=== PATIENT | male | born 1955 | race Hispanic/Latino ===

== ENCOUNTER 2019-10-07 14:19 | Inpatient (IN) | payer MEDICARE ==
[~2019-10-07] VITALS: Ht 162.6 cm; Wt 98.7 kg
[2019-10-07] VITALS (11 sets, daily range): BP systolic 98–126; BP diastolic 61–72
[2019-10-07] MEDS ORDERED: SODIUM CHLORIDE 0.9% 1000ML 1,000 ML IV ONE ×2 (14:50→15:11)
[2019-10-07] MEDS ORDERED: SODIUM CHLORIDE 0.9% 100 ML IV ONE (14:51)
[2019-10-07] MEDS ORDERED: CEFTRIAXONE SODIUM 1 GM ONE (14:51)
[2019-10-07] MEDS ORDERED: LEVOFLOXACIN 500 MG/D5W 100 ML 100 ML ONE (14:52)
[2019-10-07 14:56] LABS: BASOPHILS % (AUTO) 0.5 % (0.0-5.0); EOSINOPHILS % (AUTO) 0.3 % (0.0-8.0); HEMATOCRIT 32.6 % (42-54); LYMPHOCYTES % (AUTO) 5.3 % (21.0-51.0); MEAN CORPUSCULAR HEMOGLOBIN 30.8 pg (27.0-33.0); MEAN CORPUSCULAR VOLUME 90.4 fL (79-99); NEUTROPHILS % (AUTO) 87.9 % (40.0-77.0); PLATELET COUNT (AUTO) 172 K/uL (130-400); RED CELL DISTRIBUTION WIDTH 14.6 % (11.0-15.5); WHITE BLOOD COUNT (AUTO) 10.3 K/uL (4.8-10.8)
[2019-10-07] MEDS ORDERED: ACETAMINOPHEN 325 MG TAB ONE (15:01)
[2019-10-07 15:09] LABS: INR 1.08 (0.85-1.15); PROTHROMBIN TIME 11.3 SEC (9.6-11.6)
[2019-10-07 15:18] LABS: CREATININE 2.8 mg/dL (0.5-1.5); POTASSIUM 5.1 mmol/L (3.5-5.1)
[2019-10-07 15:23] LABS: ALBUMIN 2.5 g/dL (3.5-5.0); BILIRUBIN,TOTAL 0.9 mg/dL (0.2-1.0); TOTAL PROTEIN, SERUM 8.4 g/dL (6.0-8.3)
[2019-10-07 15:50] LABS: APPEARANCE,URINE Cloudy (CLEAR); BILIRUBIN,URINE Negative (NEGATIVE); COLOR,URINE Dark Yellow (YELLOW); GLUCOSE, URINE (UA) Negative (NEGATIVE); KETONES,URINE Negative (NEGATIVE); LEUKOCYTE ESTERASE ,URINE Moderate (NEGATIVE); NITRATE,URINE Negative (NEGATIVE); OCCULT BLOOD,URINE Trace (NEGATIVE); PROTEIN,URINE Trace mg/dL (NEGATIVE)
[2019-10-07 16:06] LABS: AMORPHOUS SEDIMENT,UR Many /LPF (None Seen); BACTERIA,URINE Moderate /HPF (None Seen); RBC,URINE 0-1 /HPF (0-1); SQUAMOUS EPITHELIAL CELL,UR 0-2 /HPF (0-2)
[2019-10-07 17:02] LABS: PROTEIN,URINE RANDOM 48.6 mg/dL (0-11.9)
[2019-10-07] MEDS ORDERED: LACTATED RINGERS 1000ML 1,000 ML IV ONE (17:29)
[2019-10-07] MEDS: LACTATED RINGERS 1000ML 1,000 ML IV SCH ×2 (18:14→21:49)
[2019-10-07] MEDS: MEROPENEM 1 GM VIAL IV SCH (18:16)
[2019-10-07] MEDS: HYDROCODONE/ACETAMINOPHEN 10/325 MG TAB PO PRN (18:30)
[2019-10-07] MEDS ORDERED: SITA1TAB6 PO (19:21)
[2019-10-07] MEDS ORDERED: HYDR25TA PO (19:21)
[2019-10-07] MEDS ORDERED: ATOR10 PO (19:21)
[2019-10-07] MEDS ORDERED: DOXA1TAB2 PO (19:21)
[2019-10-07] MEDS ORDERED: LOSA100T58 PO (19:21)
[2019-10-07] MEDS ORDERED: GLIP10TA PO (19:21)
[2019-10-07] MEDS ORDERED: AMLO2.5T2 PO (19:21)
[2019-10-07] MEDS ORDERED: ASPI-1026 PO (19:21)
[2019-10-07 19:39] LABS: BASOPHILS % (AUTO) 0.3 % (0.0-5.0); EOSINOPHILS % (AUTO) 0.3 % (0.0-8.0); HEMATOCRIT 28.6 % (42-54); LYMPHOCYTES % (AUTO) 7.6 % (21.0-51.0); MEAN CORPUSCULAR HEMOGLOBIN 30.6 pg (27.0-33.0); MEAN CORPUSCULAR HGB CONC 33.7 g/dL (32.0-36.0); MEAN CORPUSCULAR VOLUME 90.7 fL (79-99); MONOCYTES % (AUTO) 9.5 % (3.0-13.0); NEUTROPHILS % (AUTO) 82.3 % (40.0-77.0); PLATELET COUNT (AUTO) 151 K/uL (130-400); RED BLOOD CELL COUNT(AUTO) 3.15 MIL/uL (4.50-6.20); RED CELL DISTRIBUTION WIDTH 14.6 % (11.0-15.5); WHITE BLOOD COUNT (AUTO) 8.5 K/uL (4.8-10.8)
[2019-10-07 19:51] LABS: ALBUMIN 2.1 g/dL (3.5-5.0); BILIRUBIN,TOTAL 0.6 mg/dL (0.2-1.0); CREATININE 2.6 mg/dL (0.5-1.5); POTASSIUM 4.3 mmol/L (3.5-5.1); TOTAL PROTEIN, SERUM 7.2 g/dL (6.0-8.3)
--- NOTE | 2019-10-07 21:40 | NUR ---
PM LAB RESULTS REPORTED TO Trista WASHINGTON NP NEW ORDERS RECEIVED.
[2019-10-07] MEDS ORDERED: LACTATED RINGERS 1000ML IV ONE (22:00)
[2019-10-08] VITALS (34 sets, daily range): BP systolic 100–182; BP diastolic 54–97
[2019-10-08 04:51] LABS: HEMOGLOBIN A1C 8.5 % (4.0-6.0)
[2019-10-08] MEDS: MEROPENEM 1 GM VIAL IV SCH ×2 (05:29→17:25)
[2019-10-08] MEDS: LACTATED RINGERS 1000ML 1,000 ML IV SCH ×3 (05:29→20:11)
[2019-10-08] MEDS: FAMOTIDINE 20MG TAB 20 MG TAB PO SCH (08:11)
[2019-10-08] MEDS: ENOXAPARIN SODIUM 30 MG/0.3 ML SQ SCH (08:12)
[2019-10-08] MEDS: HYDROCODONE/ACETAMINOPHEN 10/325 MG TAB PO PRN ×2 (08:17→17:34)
[2019-10-08] MEDS: TAMSULOSIN HCL 0.4 MG CAP.ER.24H PO SCH (09:03)
--- NOTE | 2019-10-08 13:32 | NUR ---
DC PLAN PER PATIENT AND , DEPENDENT ON ALL ADLS, LIVES WITH SPOUSE, NO PROVIDER OR COMMUNITY SERVICES, HAS CANE, WC, WALKER AND FEELS SAFE TO RETURN HOME. PATIENT WANT TO INQUIRE ABOUT HAVING WC ACCESSIBLE BATHROOM, REFERRED TO THE DEPARTMENT OF AGING AND DISABILITY FOR MORE INFORMATION. PORTER THAKUR. Addendum: 10/08/19 at 1336 by GARCÍA HERNANDEZ RN CM Amended: Links added.
[2019-10-08] MEDS: INSULIN HUMULIN R 100 UNIT/ML 3ML SQ SCH ×3 (13:53→21:00)
[2019-10-08] MEDS ORDERED: METOPROLOL TARTRATE 1 MG/ML 5ML VIAL IV PRN (21:45)
--- NOTE | 2019-10-08 21:45 | NUR ---
BERNADINE CHEW NP NOTIFIED OF PATIENT WITH HR ST 136, BP 182/95. NEW ORDER RECEIVED.
[2019-10-08] MEDS ORDERED: ACETAMINOPHEN 325 MG TAB PO PRN (22:30)
[2019-10-08] MEDS ORDERED: ACETAMINOPHEN 325 MG TAB ONE (23:00)
--- NOTE | 2019-10-08 23:15 | NUR ---
Trista WASHINGTONRN NOTIFIED OF PATIENT WITH TEMP 102.3, CONFUSED PHRASE, ORIENTED TO NAME AND DATE BUT THINKS HE IS IN A DAY CARE. TYLENOL PO GIVEN FOR TEMP SEE EMAR
[2019-10-09] VITALS (13 sets, daily range): BP systolic 125–156; BP diastolic 58–98
[2019-10-09 03:47] LABS: BASOPHILS % (AUTO) 0.3 % (0.0-5.0); EOSINOPHILS % (AUTO) 0.9 % (0.0-8.0); HEMATOCRIT 30.7 % (42-54); LYMPHOCYTES % (AUTO) 10.1 % (21.0-51.0); MEAN CORPUSCULAR HEMOGLOBIN 30.4 pg (27.0-33.0); MEAN CORPUSCULAR VOLUME 89.3 fL (79-99); MONOCYTES % (AUTO) 7.5 % (3.0-13.0); NEUTROPHILS % (AUTO) 81.2 % (40.0-77.0); PLATELET COUNT (AUTO) 177 K/uL (130-400); RED BLOOD CELL COUNT(AUTO) 3.44 MIL/uL (4.50-6.20); RED CELL DISTRIBUTION WIDTH 14.6 % (11.0-15.5); WHITE BLOOD COUNT (AUTO) 6.5 K/uL (4.8-10.8)
[2019-10-09 04:01] LABS: CREATININE 1.5 mg/dL (0.5-1.5); MAGNESIUM 1.6 mg/dL (1.80-2.40); PHOSPHORUS 2.8 mg/dL (2.5-4.9); POTASSIUM 4.8 mmol/L (3.5-5.1)
[2019-10-09] MEDS: MEROPENEM 1 GM VIAL IV SCH ×3 (04:54→20:02)
[2019-10-09] MEDS: INSULIN HUMULIN R 100 UNIT/ML 3ML SQ SCH ×4 (05:33→20:11)
[2019-10-09] MEDS: LACTATED RINGERS 1000ML 1,000 ML IV SCH (06:39)
--- NOTE | 2019-10-09 07:50 | NUR ---
TRANSFER PT RECEIVED FROM ICU RM 210 VIA BED. TOLERATED TRANSFER WELL. FAMILY @ BEDSIDE. A/O X 3. SOB ON EXERTION. NO DISTRESS NOTED. 02 N @ 2L. DENIES CHEST PAIN OR DISCOMFORT. DENIES PALPITATIONS. TELE: -STAYULIYA. HX OF CHRONIC BACK PAIN. DENIES N/V AND/OR DIARRHEA. LAST BM 10/05/19. PT STATES HAVING HX OF CONSTIPATION. BEDREST. PENDING PHYS THERAPY TO EVAL TODAY. ORIENTED TO RM. INSTRUCTED TO CALL FOR ASSISTANCE. CALL NASIM W/IN REACH.
[2019-10-09] MEDS: TAMSULOSIN HCL 0.4 MG CAP.ER.24H PO SCH (09:19)
[2019-10-09] MEDS: METOPROLOL TARTRATE 25 MG TAB PO SCH ×2 (09:19→20:02)
[2019-10-09] MEDS: FAMOTIDINE 20MG TAB 20 MG TAB PO SCH (09:20)
[2019-10-09] MEDS: ENOXAPARIN SODIUM 30 MG/0.3 ML SQ SCH (09:24)
--- NOTE | 2019-10-09 14:10 | NUR ---
TRANSFER REPORT GIVEN TO LINDA JOLLY.
[2019-10-09] MEDS ORDERED: MAGNESIUM 2GM PREMIX 50ML 50 ML IV PRN (14:15)
--- NOTE | 2019-10-09 14:45 | NUR ---
TRANSFER PT TRANSFERRED TO 407 VIA BED BY Jay GILES PCP & Fallon GALEAS PCP, ACCOMPANIED BY FAMILY. NO DISTRESS NOTED.
[2019-10-09] MEDS: TRAMADOL HCL 50 MG TABLET PO PRN (20:05)
[2019-10-09] MEDS ORDERED: LACTULOSE 20 GM/30 ML UDCUP PO PRN (21:30)
[2019-10-10 04:00] VITALS: BP 136/78
[2019-10-10 04:13] LABS: BASOPHILS % (AUTO) 0.4 % (0.0-5.0); EOSINOPHILS % (AUTO) 1.9 % (0.0-8.0); HEMATOCRIT 31.5 % (42-54); LYMPHOCYTES % (AUTO) 17.5 % (21.0-51.0); MEAN CORPUSCULAR HEMOGLOBIN 30.7 pg (27.0-33.0); MEAN CORPUSCULAR HGB CONC 34.2 g/dL (32.0-36.0); MEAN CORPUSCULAR VOLUME 89.8 fL (79-99); MONOCYTES % (AUTO) 8.8 % (3.0-13.0); NEUTROPHILS % (AUTO) 71.4 % (40.0-77.0); PLATELET COUNT (AUTO) 204 K/uL (130-400); RED BLOOD CELL COUNT(AUTO) 3.51 MIL/uL (4.50-6.20); RED CELL DISTRIBUTION WIDTH 14.6 % (11.0-15.5); WHITE BLOOD COUNT (AUTO) 5.8 K/uL (4.8-10.8)
[2019-10-10 04:29] LABS: CREATININE 1.4 mg/dL (0.5-1.5); MAGNESIUM 1.9 mg/dL (1.80-2.40); POTASSIUM 4.7 mmol/L (3.5-5.1)
[2019-10-10] MEDS: INSULIN HUMULIN R 100 UNIT/ML 3ML SQ SCH ×4 (05:43→22:49)
[2019-10-10 07:45] VITALS: BP 135/83
[2019-10-10 11:02] VITALS: BP 138/77
[2019-10-10] MEDS: METOPROLOL TARTRATE 25 MG TAB PO SCH ×2 (12:03→20:45)
[2019-10-10] MEDS: MEROPENEM 1 GM VIAL IV SCH ×2 (12:03→20:45)
[2019-10-10] MEDS: FAMOTIDINE 20MG TAB 20 MG TAB PO SCH (12:04)
[2019-10-10] MEDS: TAMSULOSIN HCL 0.4 MG CAP.ER.24H PO SCH (12:04)
[2019-10-10] MEDS: ENOXAPARIN SODIUM 30 MG/0.3 ML SQ SCH (12:05)
[2019-10-10 15:56] VITALS: BP 137/85
--- NOTE | 2019-10-10 16:20 | NUR ---
NELSON FOR PAM. FIRST CHOICE JEWEL, IF NOT IN NETWORK, PAM CHRISTENSEN PACKET AND PASSR SENT Addendum: 10/11/19 at 1103 by KASANDRA SALAZAR RN CM Amended: Links added.
[2019-10-10] MEDS: TRAMADOL HCL 50 MG TABLET PO PRN (18:29)
[2019-10-10 19:52] VITALS: BP 133/81
[2019-10-10 23:43] VITALS: BP 125/76
[2019-10-11 04:00] VITALS: BP 113/76
[2019-10-11 04:56] LABS: CREATININE 1.3 mg/dL (0.5-1.5); POTASSIUM 4.4 mmol/L (3.5-5.1)
[2019-10-11] MEDS: INSULIN HUMULIN R 100 UNIT/ML 3ML SQ SCH ×4 (05:52→20:47)
[2019-10-11] MEDS ORDERED: VANCOMYCIN PROTOCOL PER PHARMACY IV SCH (07:30)
[2019-10-11 07:59] VITALS: BP 131/84
[2019-10-11] MEDS: METOPROLOL TARTRATE 25 MG TAB PO SCH ×2 (08:58→20:32)
[2019-10-11] MEDS: FAMOTIDINE 20MG TAB 20 MG TAB PO SCH (08:58)
[2019-10-11] MEDS: TAMSULOSIN HCL 0.4 MG CAP.ER.24H PO SCH (08:58)
[2019-10-11] MEDS: MEROPENEM 1 GM VIAL IV SCH (08:59)
[2019-10-11] MEDS: ENOXAPARIN SODIUM 30 MG/0.3 ML SQ SCH (08:59)
[2019-10-11 11:34] VITALS: BP 121/77
--- NOTE | 2019-10-11 12:40 | NUR ---
REFERRAL IN PROCESS UPDATE ON CULTURES SENT
[2019-10-11] MEDS ORDERED: GADODIAMIDE 10 MMOL/20 ML VIAL IV ONE (14:24)
[2019-10-11 15:35] VITALS: BP 120/76
[2019-10-11] MEDS: NAFCILLIN 2GM+ NS 100ML 100 ML IV SCH ×2 (18:13→20:00)
[2019-10-11 19:00] VITALS: BP 111/81
[2019-10-12] VITALS (8 sets, daily range): BP systolic 83–134; BP diastolic 54–83
--- NOTE | 2019-10-12 00:46 | NUR ---
PT STATUS TRIAL ATTORNEY MADE NURSE AWARE THAT PT HAD TWO SEPARATE EPISODES OF AFIB RVR ONE OF 5 SEC AND THE OTHER OF 3 SEC WITH HR IN 190'S. PT NOW IN NSR HR IN THE 90'S. UPON ENTERING PT ROOM, PT OBSERVED LAYING IN BED SLEEPING. NOTICED TO BE SOME WHAT LETHARGIC, A LITTLE HARD TO AROUSE. BP 128/77, HR 93, O2 SAT 98% ON THE CPAP. BLOOD SUGAR ASSESSED 145. PT MORE AWAKE AFTER A FEW MINUTES, ABLE TO ANSWER QUESTIONS. MANAGER DOMESTIC PADMINI MADE AWARE OF PT STATUS. NEW ORDERS RECEIVED, REFER TO EMR.
[2019-10-12 01:08] LABS: CREATININE 1.5 mg/dL (0.5-1.5); POTASSIUM 4.4 mmol/L (3.5-5.1)
[2019-10-12 01:12] LABS: ALBUMIN 2.6 g/dL (3.5-5.0); BILIRUBIN,TOTAL 0.7 mg/dL (0.2-1.0); MAGNESIUM 2.4 mg/dL (1.80-2.40); TOTAL PROTEIN, SERUM 8.3 g/dL (6.0-8.3)
[2019-10-12] MEDS: NAFCILLIN 2GM+ NS 100ML 100 ML IV SCH ×4 (01:29→20:56)
[2019-10-12] MEDS: INSULIN HUMULIN R 100 UNIT/ML 3ML SQ SCH ×4 (06:42→21:07)
[2019-10-12] MEDS: FAMOTIDINE 20MG TAB 20 MG TAB PO SCH (09:28)
[2019-10-12] MEDS: TAMSULOSIN HCL 0.4 MG CAP.ER.24H PO SCH (09:28)
[2019-10-12] MEDS: ENOXAPARIN SODIUM 30 MG/0.3 ML SQ SCH (09:28)
[2019-10-12] MEDS: METOPROLOL TARTRATE 25 MG TAB PO SCH ×2 (09:28→20:57)
[2019-10-12] MEDS: TRAMADOL HCL 50 MG TABLET PO PRN (16:16)
[2019-10-13] VITALS (7 sets, daily range): BP systolic 115–128; BP diastolic 72–86
[2019-10-13] MEDS: NAFCILLIN 2GM+ NS 100ML 100 ML IV SCH ×4 (02:02→20:35)
[2019-10-13 04:49] LABS: HEMATOCRIT 31.8 % (42-54); MEAN CORPUSCULAR HEMOGLOBIN 31.1 pg (27.0-33.0); MEAN CORPUSCULAR VOLUME 91.6 fL (79-99); PLATELET COUNT (AUTO) 228 K/uL (130-400); RED BLOOD CELL COUNT(AUTO) 3.47 MIL/uL (4.50-6.20); RED CELL DISTRIBUTION WIDTH 14.9 % (11.0-15.5); WHITE BLOOD COUNT (AUTO) 5.4 K/uL (4.8-10.8)
[2019-10-13 04:53] LABS: CREATININE 1.9 mg/dL (0.5-1.5); POTASSIUM 4.5 mmol/L (3.5-5.1)
[2019-10-13 04:59] LABS: LYMPHOCYTES % (MANUAL) 12 % (22-44); MONOCYTES % (MANUAL) 4 % (2-9); SEGMENTED NEUTROPHILS % 84 % (40-70)
[2019-10-13 05:00] LABS: MAN.DIFF COMMENT-IMPRESSION MANUAL DIFFERENTIAL; PLATELET MORPHOLOGY COMMENT ADEQUATE
[2019-10-13] MEDS: INSULIN HUMULIN R 100 UNIT/ML 3ML SQ SCH ×4 (05:58→20:36)
[2019-10-13] MEDS: TAMSULOSIN HCL 0.4 MG CAP.ER.24H PO SCH (08:27)
[2019-10-13] MEDS: FAMOTIDINE 20MG TAB 20 MG TAB PO SCH (08:27)
[2019-10-13] MEDS: METOPROLOL TARTRATE 25 MG TAB PO SCH ×2 (08:27→20:35)
[2019-10-13] MEDS: ENOXAPARIN SODIUM 30 MG/0.3 ML SQ SCH (08:28)
--- NOTE | 2019-10-13 08:42 | NUR ---
Patient placed on 28%(2L NC), saturations xi to 96% Addendum: 10/13/19 at 0843 by ALISON CHEN RT Amended: Links added.
[2019-10-13] MEDS ORDERED: COMPOUND IV REFRIGERATED 1 EACH IVSOLN MISC PRN (11:15)
[2019-10-13] MEDS: TRAMADOL HCL 50 MG TABLET PO PRN (18:18)
[2019-10-14] MEDS: NAFCILLIN 2GM+ NS 100ML 100 ML IV SCH ×4 (01:53→20:17)
[2019-10-14 03:21] VITALS: BP 109/53
[2019-10-14] MEDS: INSULIN HUMULIN R 100 UNIT/ML 3ML SQ SCH ×4 (05:44→20:21)
[2019-10-14 08:22] VITALS: BP 127/79
[2019-10-14] MEDS: FAMOTIDINE 20MG TAB 20 MG TAB PO SCH (09:42)
[2019-10-14] MEDS: METOPROLOL TARTRATE 25 MG TAB PO SCH ×2 (09:43→20:17)
[2019-10-14] MEDS: TAMSULOSIN HCL 0.4 MG CAP.ER.24H PO SCH (09:43)
[2019-10-14] MEDS: ENOXAPARIN SODIUM 30 MG/0.3 ML SQ SCH (09:45)
[2019-10-14] MEDS: SODIUM CHLORIDE 0.9% 1000ML 1,000 ML IV SCH (09:54)
[2019-10-14 11:22] VITALS: BP 125/84
--- NOTE | 2019-10-14 13:22 | NUR ---
NUTRITION EDUCATION RD provided Diabetes Nutrition education via Telugu Translation. Pt denies need for Nutrition education, although Pt with nutrition questions. Pt refused reference materials and handouts. RD emphasized importance of Low CHO, Low Fat foods. RD encouraged Pt to notify as questions or concerns arise. Addendum: 10/14/19 at [address] RD Amended: Links added.
--- NOTE | 2019-10-14 13:31 | NUR ---
RDSCREEN - LOS X 7 Pt admitted for Hypotension, Pyelonephritis. Pt tolerating 75gm CCD, NCS, however Pt dislikes food. Pt with special request;RD recommend to offer snacks between meals. Recommend to also add renal non dialysis diet modifier secondary to altered renal labs. Pt denies need for Diabetes nutrition education. Pt refused reference materials and handouts. RD emphasized Low Cho, Low fat diet. Pt LBM 12/8. Pt monitored labs: BG 152, BUN 38, Cr 1.9, GFR 38, Ca 8.2, AST 42, Alk 222, Alb 2.6. RD to continue to monitor. Please notify RD as additional nutrition concerns arise. Thank you. Addendum: 10/14/19 at [address] RD Amended: Links added.
[2019-10-14 16:20] VITALS: BP 156/78
[2019-10-14 19:50] VITALS: BP 147/88
[2019-10-14 23:39] VITALS: BP 145/85
[2019-10-15] MEDS: NAFCILLIN 2GM+ NS 100ML 100 ML IV SCH ×3 (02:24→16:15)
[2019-10-15 04:00] VITALS: BP 124/74
[2019-10-15 04:58] LABS: HEMATOCRIT 31.9 % (42-54); MEAN CORPUSCULAR HEMOGLOBIN 29.3 pg (27.0-33.0); MEAN CORPUSCULAR HGB CONC 32.3 g/dL (32.0-36.0); MEAN CORPUSCULAR VOLUME 90.9 fL (79-99); PLATELET COUNT (AUTO) 195 K/uL (130-400); RED BLOOD CELL COUNT(AUTO) 3.51 MIL/uL (4.50-6.20); RED CELL DISTRIBUTION WIDTH 14.6 % (11.0-15.5); WHITE BLOOD COUNT (AUTO) 6.2 K/uL (4.8-10.8)
[2019-10-15 05:02] LABS: INR 1.09 (0.85-1.15); PROTHROMBIN TIME 11.4 SEC (9.6-11.6)
[2019-10-15 05:09] LABS: ALBUMIN 2.4 g/dL (3.5-5.0); BILIRUBIN,TOTAL 1.3 mg/dL (0.2-1.0); CREATININE 1.5 mg/dL (0.5-1.5); POTASSIUM 3.6 mmol/L (3.5-5.1)
[2019-10-15 05:46] LABS: EOSINOPHILS % (MANUAL) 1 % (1-6); LYMPHOCYTES % (MANUAL) 14 % (22-44); MAN.DIFF COMMENT-IMPRESSION MANUAL DIFFERENTIAL; MONOCYTES % (MANUAL) 5 % (2-9); SEGMENTED NEUTROPHILS % 80 % (40-70)
[2019-10-15] MEDS: INSULIN HUMULIN R 100 UNIT/ML 3ML SQ SCH ×3 (07:30→16:30)
[2019-10-15 08:17] VITALS: BP 152/85
[2019-10-15] MEDS: ENOXAPARIN SODIUM 30 MG/0.3 ML SQ SCH (09:00)
[2019-10-15] MEDS: TAMSULOSIN HCL 0.4 MG CAP.ER.24H PO SCH (11:02)
[2019-10-15] MEDS: METOPROLOL TARTRATE 25 MG TAB PO SCH (11:02)
[2019-10-15] MEDS: FAMOTIDINE 20MG TAB 20 MG TAB PO SCH (11:03)
[2019-10-15 11:35] VITALS: BP 151/84
[2019-10-15] MEDS: SODIUM CHLORIDE 0.9% 1000ML 1,000 ML IV SCH (12:10)
[2019-10-15 17:01] VITALS: BP 125/84
--- NOTE | 2019-10-15 17:25 | NUR ---
FOR DC TODAY- CONFIRMED WITH HELGA DIOR
--- NOTE | 2019-10-15 17:45 | NUR ---
DISCHARGE/NURSE REPORT NURSE REPORT GIVEN TO BOBO ELIAS OF [facility]. INFORMED THAT MEDICATIONS RECONCILIATION FAXED TO [facility]. ORIGINAL RX FOR NAFCILLIN PLACED IN CHART COPY FOLDER. INFORMED THAT RIGHT UPPER ARM PICC LINE PLACED TODAY AND RECEIVED ORDER FROM HOSPITALIST MILES TO USE PICC LINE. INFORMED THAT PATIENT HAS F/U SCHEDULED WITH DR. IRVIN AND DR. RODRIGUEZ. INFORMED THAT PATIENT WAS RECEIVING ANTIBIOTIC NOW, BOBO ELIAS REPLIED HE WOULD SEND PIANO TUNER TO COUNT TEAM CLERK PATIENT IN AN HOUR.
--- NOTE | 2019-10-15 18:00 | NUR ---
DISCHARGE DISCHARGE TEACHING PROVIDED TO PATIENT AND . INFORMED OF SCHEDULED F/U APPTS WITH DR. IRVIN AND DR. RODRIGUEZ. INFORMED PATIENT AND THAT F/U WITH PRIMARY MD IS PENDING TO BE SCHEDULED AND PATIENTS TOLD ME SHE WOULD CALL PCP TO RESCHEDULE AN APPOINTMENT. PROVIDED DISCHARGE TEACHING REGARDING ANTIBIOTIC RX, PICC LINE CARE, POSITIVE BLOOD CULTURES, POSITIVE URINE CULTURES, AND OSTEOMYELITIS AND INDICATIONS FOR LONGTERM IV ANTIBIOTICS. STRESSED IMPORTANCE OF FOLLOWING UP WITH ABOVE NOTED MD'S FOR CONTINUITY OF CARE. PATIENT AND VERBALIZED UNDERSTANDING. REMOVED 22G IV FROM LEFT FA, CATHETER TIP INTACT. RIGHT UPPER ARM DOUBLE LUMEN 5 FR [address] LINE IN PLACE AT TIME IF DISCHARGE, PICC LINE DRESSING DRY AND INTACT, BOTH LUMENS FLUSHED WITH NS WITH NO RESISTANCE NOTED.
== END 2019-10-15 18:00 | DRG 872 ==
LOC: EDH 14:19 → EDHIP 16:21 → 2BH 17:52 → 2DH 10-09 08:26 → 4BH 10-09 14:31
PROVIDERS: ADMIT Internal Medicine; ATTEND Internal Medicine
PROC: 5A09357 Assistance with Respiratory Ventilation, Less than 24 Consecutive Hours, Continuous Positive Airway Pressure (ICD-10-PCS; 2019-10-11)
PROC: 5A09357 Assistance with Respiratory Ventilation, Less than 24 Consecutive Hours, Continuous Positive Airway Pressure (ICD-10-PCS; 2019-10-12)
PROC: 5A09357 Assistance with Respiratory Ventilation, Less than 24 Consecutive Hours, Continuous Positive Airway Pressure (ICD-10-PCS; 2019-10-13)
PROC: 02HV33Z Insertion of Infusion Device into Superior Vena Cava, Percutaneous Approach (ICD-10-PCS; principal; 2019-10-15)
PROC: B548ZZA Ultrasonography of Superior Vena Cava, Guidance (ICD-10-PCS; 2019-10-15)
DX: A41.01 Sepsis due to Methicillin susceptible Staphylococcus aureus (principal); N12 Tubulo-interstitial nephritis, not specified as acute or chronic; N17.9 Acute kidney failure, unspecified; M46.26 Osteomyelitis of vertebra, lumbar region; R65.20 Severe sepsis without septic shock; M46.46 Discitis, unspecified, lumbar region; D64.9 Anemia, unspecified; E11.22 Type 2 diabetes mellitus with diabetic chronic kidney disease; E11.51 Type 2 diabetes mellitus with diabetic peripheral angiopathy without gangrene; E66.01 Morbid (severe) obesity due to excess calories; E78.5 Hyperlipidemia, unspecified; E11.65 Type 2 diabetes mellitus with hyperglycemia; E11.69 Type 2 diabetes mellitus with other specified complication; E83.42 Hypomagnesemia; I12.9 Hypertensive chronic kidney disease with stage 1 through stage 4 chronic kidney disease, or unspecified chronic kidney disease; N40.0 Benign prostatic hyperplasia without lower urinary tract symptoms; N18.9 Chronic kidney disease, unspecified; Z83.3 Family history of diabetes mellitus; Z87.891 Personal history of nicotine dependence; Z68.37 Body mass index [BMI] 37.0-37.9, adult
CPT/HCPCS: 36415; 71045; 71250; 72157; 72158; 76770; 80048; 80053; 81001; 82550; 82570; 82948; 83036; 83605; 83735; 84100; 84145; 84153; 84156; 84300; 84484; 85025; 85610; 85651; 85730; 87040; 87077; 87088; 87186; 87804; 93005; 93306; 94660; 97039; 99291; A9579; C1894; G0378; J0696; J1650; J1815; J1956; J2185; J3475; J3490; J7030; J7120